=== PATIENT | female | born 1960 | race Caucasian/White ===

== ENCOUNTER 2016-05-27 12:33 | Inpatient (IN) | payer OTHER, MEDICAID ==
--- NOTE | 2016-05-22 15:07 | PCM.ANEPRE ---
Anesthesia Pre-Op Review Reason for Review: elevated BMI Anesthesia Recommendations: Proceed with Procedure Additional Comments 56 yo for total shoulder arthroplasty. Patient's comorbidities include YARA noncompliant on CPAP, BMI 55, IDDM on Lantus. Had GA for ACDF here on 02-27-14. Per anesthetic record patient was EZ mask. Glidescope 3 blade used with Gr I view, 6.5c ETT used (uncertain of reason for tube size). Patient has hx of being a reasonable airway, though this was in 2013. Has echo from 2005 that is unremarkable. Hgb A1c 05/20/16 of 7.6. Would proceed with evaluation of airway DOS and YRAA orders. Chart Reviewed by: Fabio Benz MD May 22, 2016 15:07
[2016-05-27] VITALS (19 sets, daily range): BP systolic 115–159; BP diastolic 8–92; PULSE 70–88; RESP 14–22; O2SAT 94–98
[~2016-05-27] VITALS: Ht 162.6 cm; Wt 157.2 kg
[2016-05-27] MEDS: Lactated Ringer's 1,000 ML IV SCH ×4 (05:00→21:07)
[~2016-05-27 12:33] MED LIST: ALBU8.5H2 INHALATION; CeFAZolin 2 Gm/50 mL D5W IV Premix IV ONE; DICL100G8 TOPICAL; DICL75TA6 PO; FLUO40CA PO; FLUT16SP NS; FURO-128 PO; GABA-502 PO; INSLIS SUBQ; INSU100V7 SUBQ; LEVO100T6 PO; LIP40 PO; NPR500T PO; OMEP40CA36 PO; TRAM50TA2 PO; TRAZ150T72 PO; vitamin d2; wellbutrin
[2016-05-27] MEDS ORDERED: CeFAZolin Inj 3 GM in Dextrose 5% 50 ML IV ONE (13:30)
[2016-05-27] MEDS ORDERED: BUPR75TA10 PO (13:40)
[2016-05-27] MEDS ORDERED: LOM PO (13:40)
[2016-05-27] MEDS ORDERED: SOMA350 PO (13:40)
[2016-05-27] MEDS ORDERED: PREC VAGINAL (13:52)
[2016-05-27] MEDS ORDERED: LOSA25TA21 PO (13:52)
[2016-05-27] MEDS ORDERED: ONDA8TAB10 PO (13:52)
[2016-05-27] MEDS ORDERED: METO50TA3 PO (13:52)
[2016-05-27] MEDS ORDERED: HYDR-3825 PO (13:52)
[2016-05-27] MEDS ORDERED: GABA800T2 PO (13:52)
--- NOTE | 2016-05-27 14:14 | PCM.HPANE ---
Patient Data Surgeon Admitting Provider: Attending Provider:Jay Galindo MD Primary Care Physician:Dwayne Soriano MD Other Provider:Yennifer Negreteingham Anesthesia Reason for Visit Right Shoulder Arthritis RIGHT SHOULDER ARTHRITIS Ht/WT & BMI Height (Feet): 5 Height (Inches): 4 Weight (Kilograms): 157.2 Body Mass Index 59.00 Allergies Coded Allergies: morphine (Verified Allergy, Severe, 02/01/14) vancomycin (Verified Allergy, Intermediate, HIVES, 09/13/15) Sulfa (Sulfonamide Antibiotics) (Verified Allergy, Unknown, BOTTOMS OF FEET AND PALMS OF HANDS BLISTER, 02/01/14) Past Anesthesia History Anesthesia History: Denies:: Abnormal Airway, Anesthesia Reactions, Difficult Intubation, Fam Anesthesia Reaction, Fam Malignant Hypertherm, Malignant Hyperthermia Diabetes History Hx Diabetes?: Yes Type of Diabetes: Type II Glycemic Control: Insulin Dependent Current Bedside Blood Glucose: 105 MRSA MRSA: Yes ([id number] AFTER C-SPINE SX) Medications Hypertension Medication: Yes Home Meds Incl Beta Elvie: Yes Date Beta Elvie Taken: May 27, 2016 Time Beta Elvie Taken: 0500 Reported Medications Hydrocodone-Acetaminophen 7.5-325 mg 1 Each Tablet1 Tab PO prn #90 05/27/16 Ondansetron ODT 8 Mg Tab.rapdis8 Mg PO prn #30 05/27/16 Metoprolol Tartrate 50 Mg Civcsq69 Mg PO DAILY #30 05/27/16 Losartan Potassium 25 Mg Siumyd90 Mg PO DAILY #30 05/27/16 Gabapentin 800 Mg Zpwntf811 Mg PO TID #90 05/27/16 Estrogens Conjugated (Premarin)1 Gm Vagcream0.625 Mg VAGINAL twice week #30 05/27/16 Diphenoxylate/Atropine (Diphenoxylate-Atrop 2.5-0.025)2.5 Mg Tablet2 Tab PO QID #90 05/27/16 Carisoprodol 350 Mg Zyadcq339 Mg PO TID #90 05/27/16 Bupropion 75 Mg Obnxnv94 Mg PO TID #90 05/27/16 Diclofenac Gel (Voltaren Gel)100 Gm TubeUnknown Dose TOPICAL QID #1 TUBE 05/22/16 [vitamin d2] No Conflict Check50,000 Units WEEKLY 05/22/16 Trazodone 150 Mg Sdvsbt487 Mg PO HS PRN Insomnia Ref 0 05/22/16 Albuterol HFA (Proair HFA)8.5 Gm Hfa.aer.ad2 Puffs INHALATION Q4H PRN For Shortness of Breath #1 INHALER 05/22/16 Omeprazole 40 Mg Capsule.dr40 Mg PO BID Ref 0 05/22/16 Naproxen 500 Mg Qri546 Mg PO BID PRN For Pain Ref 0 05/22/16 Levothyroxine 100 Mcg Jttzyi595 Mcg PO DAILY For Thyroid Replacement Ref 0 05/22/16 Furosemide (Lasix)40 Mg Vjxwtn13 Mg PO DAILY PRN edema 30 Days Ref 0 pt states for right arm edema, takes every few days 05/22/16 Insulin Glargine (Lantus U100 Insulin Vial)100 Unit/Ml Vial30 Unit SUBQ BID PRN dosed per sliding scale #1 VIAL Ref 0 05/22/16 Insulin Human Lispro (HumaLOG U100 Insulin Vial)100 Unit/Ml Unit25 Units SUBQ BID PRN sliding scale #1 VIAL Ref 0 Check blood sugars before meals and at bedtime. Use correction factor only before meals. Blood Sugar Lispro Correction: <151, 0 units; 151-175, 1 unit; 176-200, 2 units; 201-225, 3 units; 226-250, 4 units; 251-275, 5 units; 276-300, 6 units; 301-325, 7 units; 326-350, 8 units; 351-375, 9 units; 376-400, 10 units; >400, 12 units. 05/22/16 Fluoxetine 40 Mg Ydbzaqj57 Mg PO DAILY Ref 0 05/22/16 Atorvastatin (Lipitor)40 Mg Tfkqmr91 Mg PO DAILY Ref 0 05/22/16 Discontinued Reported Medications [wellbutrin] No Conflict Check75 Mg DAILY 05/22/16 Tramadol 50 Mg Gyrhny28-571 Mg PO TID PRN For Pain Ref 0 05/22/16 Insulin Glargine (Lantus U100 Insulin Vial)100 Unit/Ml Vial20 Unit SUBQ QAM #1 VIAL Ref 0 05/22/16 Gabapentin 300 Mg Hthdfvn272 Mg PO TID Ref 0 05/22/16 Fluticasone Propionate (Fluticasone Propionate Nasal)16 Gm [place].susp1 [place] NS BID #16 GM Ref 0 05/22/16 Diclofenac ER 75 Mg Vqqqjv54 Mg PO BID 05/22/16 Ergocalciferol (Vitamin D2) (Vitamin D2)2,000 Unit Tablet2,000 Unit PO 05/22/16 Tramadol 50 Mg Ilbhah11 Mg PO Q4H PRN For Pain Ref 0 05/22/16 Fluticasone Propionate (Fluticasone Propionate Nasal)16 Gm [place].susp1 [place] NS BID #16 GM Ref 0 05/22/16 Diclofenac ER 75 Mg Itkuat12 Mg PO BID 05/22/16 Cephalexin 500 Mg Tyiqrls395 Mg PO QID #40 CAPSULE Ref 0 05/22/16 Amoxicillin 500 Mg Fnivecs836 Mg PO TID Ref 0 05/22/16 Bupropion ER (Wellbutrin SR)100 Mg Tablet.er100 Mg PO BID Ref 0 09/13/15 Insulin Lispro (HumaLOG U100 Insulin Pen)100 Unit/1 Ml Insuln.pen18 Unit SUBQ AM #1 PENINJ Ref 0 Blood Sugar Lispro Correction <151 0 units 151-175 1 unit 176-200 2 units 201-225 3 units 226-250 4 units 251-275 5 units 276-300 6 units 301-325 7 units 326-350 8 units 351-375 9 units 376-400 10 units >400 12 units Check blood sugars before meals and at bedtime. Use correction factor only before meals. 02/24/14 Insulin Glargine (Lantus U100 Solostar Insulin Pen)100 Unit/1 Ml Insuln.pen22 Unit SUBQ AM #1 PENINJ Ref 0 02/24/14 Alprazolam 0.5 Mg Tablet0.5 Mg PO TID PRN For Anxiety 30 Days Ref 0 02/24/14 Methocarbamol 750 Mg Boarug015 Mg PO QID PRN For Spasm Ref 0 02/24/14 Atorvastatin Calcium 40 Mg Ndydem48 Mg PO DAILY #30 TABLET Ref 0 02/24/14 Omeprazole (Prilosec)40 Mg Capsule.dr40 Mg PO BID 30 Days Ref 0 02/24/14 Fluoxetine 20 Mg Curyqpq84 Mg PO DAILY 30 Days 02/24/14 Furosemide (Lasix)40 Mg Kjajzo19 Mg PO DAILY 30 Days Ref 0 02/24/14 Gabapentin 300 Mg Qzubgkx556 Mg PO TID 30 Days Ref 0 02/24/14 Losartan Potassium 50 Mg Hifkny329 Mg PO DAILY 02/24/14 Trazodone 150 Mg Rfmoew909 Mg PO HS 30 Days Ref 0 02/24/14 Metoprolol Succinate ER 50 Mg Tab.er.24h50 Mg PO DAILY 30 Days Ref 0 02/24/14 Diphenoxylate/Atropine 2.5-0.025 mg (Lomotil 2.5-0.025 mg)1 Each Tablet2 Each PO 4XDAILY PRN 02/24/14 History History of ENT Problems?: Yes HEENT History: Positive for:: Dysphagia (recent problem with salivary gland - no current problem) Denies:: Abnormal Airway Cataracts Difficult Intubation Glaucoma Hearing Problem Teeth Condition: Missing Teeth Hx of Heart Problems?: Yes Cardiovascular History: Positive for:: Edema (right arm post PICC line) Hypertension Denies:: AICD Atrial Fibrillation Chest Pain Pacemaker Valvular Heart Disease Hx of Respiratory Problem?: Yes Respiratory History: Denies:: Asthma COPD Cough Hemoptysis Oxygen Administration Pneumonia Tuberculosis Use of C-PAP Machine (YARA+ , does not tolerate CPAP) Use of Inhalers / NEBS Hx Neurologic Problems?: Yes Neurological History: Positive for:: Headaches (occasional with seasonal allergies) Denies:: CVA Dementia Multiple Sclerosis Parkinson's Disease Seizures TIA Hx of GI Problems?: Yes Gastrointestinal History: Positive for:: Gastroesphageal Reflux (on prilosec) Heartburn Rectal Bleeding (long ago, related to crohns disease as child) Denies:: Cirrhosis Diverticulitis Hepatitis Hiatal Hernia Hx of Problems?: No Genitourinary History: Denies:: Kidney Stones Urinary Tract Infection (occasional) Other Pertinent History: hx of bladder suspension Female Hx: Denies:: Currently (total hysterectomy 1993) Problems with Breasts? Skin History: Denies:: History Skin Disorders? Pressure Ulcers Hx Musculoskeletal Problems?: Yes Musculoskeletal History: Positive for:: Back Injury (Cervical fusion) Joint Replacement (alba knee, left shoulder) Musculoskeletal Trauma (right shoulder current admission problem) Osteoarthritis Denies:: Degenerative Joint Myasthenia Gravis Systemic Lupus Hx of Psycho/Social Problems?: Yes Psycho Social History: Positive for:: Anxiety Hx Depression Hx Surgeries?: Yes (HYSTERECTOMY, KNEE REPLACEMENTS X2, L SHOULDER, R SHOULDER , C-SPINE) Hx Any Other Health Problems?: Yes Other History: Positive for:: Thyroid Disease (goiters, monitoring) History Blood Transfusions: Positive for:: Accept Blood Products? Denies:: Blood Transfusions Hx Diabetes: YesBedside Blood Glucose: 105 Hx Alcohol Use: NoHx Substance Use: No Smoking Status: Never Smoker Have You Smoked inLast 12 mo: No Stop/Bang Treated for Sleep Apnea?: No Do You Have a CPAP Machine?: No S-Snoring: Do You Snore Loudly: Yes T-Tired: feel tired, fatigued: Yes O-Obsered: Observed not breath: No P-Blood Pressure: treated: Yes B- Body Mass Index > 35 kg/m2: Yes A- Age over 50: Yes N- Neck Large Circumference: Yes G- Gender Male: No YARA Total Score: 6 YARA Risk Assessment: Low Risk, <3 Yes Risk Assessment Category Category 1A: Patient has history of documented sleep apnea, and HAS NOT received any narcotic, sedative or anesthesia administration during this stay. Category 1B: Patient has history of documented sleep apnea, and HAS received any narcotic , sedative or anesthesia administration during this stay Category 2: Patient has SUSPECTED Obstructive Sleep Apnea, and HAS received any narcotic , sedative or anesthesia administration during this stay. Category 3: Patient has SUSPECTED Obstructive Sleep Apnea and HAS NOT received narcotic, sedative or anesthesia administration during this stay. Category 4: Outpatient in Procedural Areas with known sleep apnea or who screen positive for High Risk via the STOP/BANG questionnaire. Exam Exam Vital Signs Vital Signs Date Time Temp Pulse Resp B/P Pulse Ox O2 Delivery O2 Flow Rate FiO2 05/27/16 13:17 37.2 83 18 122/79 97 Room Air General Appearance: Oriented X3 HEENT/AIRWAY: MP 2 Lungs: Normal Air Movement Heart: Regular Rate/Rhythm Meds/Labs/Diagnostics Admission Meds Current Medications Lactated Ringer's (Lr) 1,000 ml @ 120 mls/hr Q8H20M IV Last administered on t 12:54; Start 05/27/16 at 05:00; Stop 05/27/16 at 13:19; Status DC Bedside Blood Glucose: 105 Plan Impression Patient chart reviewed, patient interviewed and anesthestic plan with risks, benefits, and alternatives discussed, and informed consent obtained. NPO Status: 2100 05/26/16 ASA Physical Status: ASA4 Life Threatening Anesthetic Support Modalities: Arterial Line Anesthetic Plan: GA Bene/Risks/Altern/Consents: Yes HP Complete Prior to Induction: Yes Anibal Faye MD May 27, 2016 14:14
[2016-05-27] MEDS ORDERED: Hip/Knee Infiltration Cocktail IM ONE ×7 (14:45)
[2016-05-27] MEDS ORDERED: Bupivacaine Liposome 1.3% 20 mL Inj INFILTRATE ONE (14:45)
[2016-05-27] MEDS ORDERED: Ropivacaine-PF 0.5% 30 mL Inj INFILTRATE ONE (16:13)
[2016-05-27] MEDS ORDERED: Gentamicin 40 mg/mL 2 mL Inj IM ONE (16:35)
[2016-05-27] MEDS ORDERED: BUPIVACAINE IM ONE ×6 (16:45)
[2016-05-27] MEDS ORDERED: [UNRECOGNIZED DRUG - OTHER] IM ONE ×6 (16:45)
[2016-05-27] MEDS ORDERED: MORPHINE IM ONE ×6 (16:45)
[2016-05-27] MEDS ORDERED: BUPIVACAINE IVPUSH PRN ×6 (16:46)
[2016-05-27] MEDS ORDERED: MORPHINE IVPUSH PRN ×6 (16:46)
[2016-05-27] MEDS ORDERED: [UNRECOGNIZED DRUG - OTHER] IVPUSH PRN ×6 (16:46)
[2016-05-27] MEDS ORDERED: MORPHINE IM PRN ×6 (16:47)
[2016-05-27] MEDS ORDERED: BUPIVACAINE IM PRN ×6 (16:47)
[2016-05-27] MEDS ORDERED: [UNRECOGNIZED DRUG - OTHER] IM PRN ×6 (16:47)
[2016-05-27] MEDS ORDERED: Dexamethasone 4 mg/mL Inj IVPUSH PRN (16:55)
[2016-05-27] MEDS ORDERED: EPHEDrine Sulfate 50 mg/mL Inj IVPUSH PRN (16:55)
[2016-05-27] MEDS ORDERED: Phenylephrine 10,000 mCg/mL Inj IVPUSH PRN (16:55)
[2016-05-27] MEDS ORDERED: Ondansetron 2 mg/mL 2 mL Inj IVPUSH PRN (16:55)
[2016-05-27] MEDS ORDERED: MetoCLOpramide 5 mg/mL 2 mL Inj IVPUSH PRN (16:55)
[2016-05-27] MEDS ORDERED: HYDROmorphone 1 mg/mL Inj IVPUSH PRN (16:55)
[2016-05-27] MEDS ORDERED: Lactated Ringer's 500 ML IV PRN (16:55)
[2016-05-27] MEDS ORDERED: Lactated Ringer's 1,000 ML IV SCH (16:55)
--- NOTE | 2016-05-27 16:55 | PCM.HPANE ---
Patient Data Surgeon Admitting Provider: Attending Provider:Jay Galindo MD Primary Care Physician:Dwayne Soriano MD Other Provider:Yennifer Negreteingham Anesthesia Reason for Visit Right Shoulder Arthritis RIGHT SHOULDER ARTHRITIS Ht/WT & BMI Height (Feet): 5 Height (Inches): 4 Weight (Kilograms): 145.60 Body Mass Index 54.00 Allergies Coded Allergies: morphine (Verified Allergy, Severe, 02/01/14) vancomycin (Verified Allergy, Intermediate, HIVES, 09/13/15) Sulfa (Sulfonamide Antibiotics) (Verified Allergy, Unknown, BOTTOMS OF FEET AND PALMS OF HANDS BLISTER, 02/01/14) Past Anesthesia History Anesthesia History: Denies:: Abnormal Airway, Anesthesia Reactions, Difficult Intubation, Fam Anesthesia Reaction, Fam Malignant Hypertherm, Malignant Hyperthermia Diabetes History Hx Diabetes?: Yes (last Hgb A1C 7.6- on 05/20/16) Type of Diabetes: Type II Glycemic Control: Insulin Dependent MRSA MRSA: Yes ([id number] AFTER C-SPINE SX) Medications Hypertension Medication: Yes Home Meds Incl Beta Elvie: No Reported Medications Hydrocodone-Acetaminophen 7.5-325 mg 1 Each Tablet1 Tab PO prn #90 05/27/16 Ondansetron ODT 8 Mg Tab.rapdis8 Mg PO prn #30 05/27/16 Metoprolol Tartrate 50 Mg Ohrswn53 Mg PO DAILY #30 05/27/16 Losartan Potassium 25 Mg Ddgqxd11 Mg PO DAILY #30 05/27/16 Gabapentin 800 Mg Pcqggj753 Mg PO TID #90 05/27/16 Estrogens Conjugated (Premarin)1 Gm Vagcream0.625 Mg VAGINAL twice week #30 05/27/16 Diphenoxylate/Atropine (Diphenoxylate-Atrop 2.5-0.025)2.5 Mg Tablet2 Tab PO QID #90 05/27/16 Carisoprodol 350 Mg Iksunw192 Mg PO TID #90 05/27/16 Bupropion 75 Mg Mazlno32 Mg PO TID #90 05/27/16 Diclofenac Gel (Voltaren Gel)100 Gm TubeUnknown Dose TOPICAL QID #1 TUBE 05/22/16 [vitamin d2] No Conflict Check50,000 Units WEEKLY 05/22/16 Trazodone 150 Mg Nyvuhi647 Mg PO HS PRN Insomnia Ref 0 05/22/16 Albuterol HFA (Proair HFA)8.5 Gm Hfa.aer.ad2 Puffs INHALATION Q4H PRN For Shortness of Breath #1 INHALER 05/22/16 Omeprazole 40 Mg Capsule.dr40 Mg PO BID Ref 0 05/22/16 Naproxen 500 Mg Bhd164 Mg PO BID PRN For Pain Ref 0 05/22/16 Levothyroxine 100 Mcg Adzqtc312 Mcg PO DAILY For Thyroid Replacement Ref 0 05/22/16 Furosemide (Lasix)40 Mg Cajzaa95 Mg PO DAILY PRN edema 30 Days Ref 0 pt states for right arm edema, takes every few days 05/22/16 Insulin Glargine (Lantus U100 Insulin Vial)100 Unit/Ml Vial30 Unit SUBQ BID PRN dosed per sliding scale #1 VIAL Ref 0 05/22/16 Insulin Human Lispro (HumaLOG U100 Insulin Vial)100 Unit/Ml Unit25 Units SUBQ BID PRN sliding scale #1 VIAL Ref 0 Check blood sugars before meals and at bedtime. Use correction factor only before meals. Blood Sugar Lispro Correction: <151, 0 units; 151-175, 1 unit; 176-200, 2 units; 201-225, 3 units; 226-250, 4 units; 251-275, 5 units; 276-300, 6 units; 301-325, 7 units; 326-350, 8 units; 351-375, 9 units; 376-400, 10 units; >400, 12 units. 05/22/16 Fluoxetine 40 Mg Puazfpx58 Mg PO DAILY Ref 0 05/22/16 Atorvastatin (Lipitor)40 Mg Pdxldu01 Mg PO DAILY Ref 0 05/22/16 Discontinued Reported Medications [wellbutrin] No Conflict Check75 Mg DAILY 05/22/16 Tramadol 50 Mg Cjeqwz01-531 Mg PO TID PRN For Pain Ref 0 05/22/16 Insulin Glargine (Lantus U100 Insulin Vial)100 Unit/Ml Vial20 Unit SUBQ QAM #1 VIAL Ref 0 05/22/16 Gabapentin 300 Mg Onqdyzs474 Mg PO TID Ref 0 05/22/16 Fluticasone Propionate (Fluticasone Propionate Nasal)16 Gm [place].susp1 [place] NS BID #16 GM Ref 0 05/22/16 Diclofenac ER 75 Mg Kudvks79 Mg PO BID 05/22/16 Ergocalciferol (Vitamin D2) (Vitamin D2)2,000 Unit Tablet2,000 Unit PO 05/22/16 Tramadol 50 Mg Jnhjcq24 Mg PO Q4H PRN For Pain Ref 0 05/22/16 Fluticasone Propionate (Fluticasone Propionate Nasal)16 Gm [place].susp1 [place] NS BID #16 GM Ref 0 05/22/16 Diclofenac ER 75 Mg Asuwcg98 Mg PO BID 05/22/16 Cephalexin 500 Mg Oxekqgu386 Mg PO QID #40 CAPSULE Ref 0 05/22/16 Amoxicillin 500 Mg Evfowez404 Mg PO TID Ref 0 05/22/16 Bupropion ER (Wellbutrin SR)100 Mg Tablet.er100 Mg PO BID Ref 0 09/13/15 Insulin Lispro (HumaLOG U100 Insulin Pen)100 Unit/1 Ml Insuln.pen18 Unit SUBQ AM #1 PENINJ Ref 0 Blood Sugar Lispro Correction <151 0 units 151-175 1 unit 176-200 2 units 201-225 3 units 226-250 4 units 251-275 5 units 276-300 6 units 301-325 7 units 326-350 8 units 351-375 9 units 376-400 10 units >400 12 units Check blood sugars before meals and at bedtime. Use correction factor only before meals. 02/24/14 Insulin Glargine (Lantus U100 Solostar Insulin Pen)100 Unit/1 Ml Insuln.pen22 Unit SUBQ AM #1 PENINJ Ref 0 02/24/14 Alprazolam 0.5 Mg Tablet0.5 Mg PO TID PRN For Anxiety 30 Days Ref 0 02/24/14 Methocarbamol 750 Mg Wbcvcl297 Mg PO QID PRN For Spasm Ref 0 02/24/14 Atorvastatin Calcium 40 Mg Pwbcmg71 Mg PO DAILY #30 TABLET Ref 0 02/24/14 Omeprazole (Prilosec)40 Mg Capsule.dr40 Mg PO BID 30 Days Ref 0 02/24/14 Fluoxetine 20 Mg Hajbkow49 Mg PO DAILY 30 Days 02/24/14 Furosemide (Lasix)40 Mg Hcxsfb52 Mg PO DAILY 30 Days Ref 0 02/24/14 Gabapentin 300 Mg Wpazrio012 Mg PO TID 30 Days Ref 0 02/24/14 Losartan Potassium 50 Mg Yjhcgt556 Mg PO DAILY 02/24/14 Trazodone 150 Mg Srsmek919 Mg PO HS 30 Days Ref 0 10/11/14 Metoprolol Succinate ER 50 Mg Tab.er.24h50 Mg PO DAILY 30 Days Ref 0 02/24/14 Diphenoxylate/Atropine 2.5-0.025 mg (Lomotil 2.5-0.025 mg)1 Each Tablet2 Each PO 4XDAILY PRN 02/24/14 History History of ENT Problems?: Yes HEENT History: Positive for:: Dysphagia (recent problem with salivary gland - no current problem) Denies:: Abnormal Airway Cataracts Difficult Intubation Glaucoma Hearing Problem Teeth Condition: Missing Teeth Hx of Heart Problems?: Yes Cardiovascular History: Positive for:: Edema (right arm post PICC line) Hypertension Denies:: AICD Atrial Fibrillation Chest Pain Pacemaker Valvular Heart Disease Hx of Respiratory Problem?: Yes Respiratory History: Denies:: Asthma COPD Cough Hemoptysis Oxygen Administration Pneumonia Tuberculosis Use of C-PAP Machine (YARA+ , does not tolerate CPAP) Use of Inhalers / NEBS Hx Neurologic Problems?: Yes Neurological History: Positive for:: Headaches (occasional with seasonal allergies) Denies:: CVA Dementia Multiple Sclerosis Parkinson's Disease Seizures TIA Hx of GI Problems?: Yes Gastrointestinal History: Positive for:: Gastroesphageal Reflux (on prilosec) Heartburn Rectal Bleeding (long ago, related to crohns disease as child) Denies:: Cirrhosis Diverticulitis Hepatitis Hiatal Hernia Hx of Problems?: No Genitourinary History: Denies:: Kidney Stones Urinary Tract Infection (occasional) Other Pertinent History: hx of bladder suspension Female Hx: Denies:: Currently (HYSTERECTOMY) Problems with Breasts? Skin History: Denies:: History Skin Disorders? Pressure Ulcers Hx Musculoskeletal Problems?: Yes Musculoskeletal History: Positive for:: Back Injury (Cervical fusion) Joint Replacement (alba knee, left shoulder) Musculoskeletal Trauma (right shoulder current admission problem) Osteoarthritis Denies:: Degenerative Joint Myasthenia Gravis Systemic Lupus Hx of Psycho/Social Problems?: Yes Psycho Social History: Positive for:: Anxiety Hx Depression Hx Surgeries?: Yes (HYSTERECTOMY, KNEE REPLACEMENTS X2, L SHOULDER, R SHOULDER , C-SPINE) Hx Any Other Health Problems?: Yes Other History: Positive for:: Thyroid Disease (goiters, monitoring) History Blood Transfusions: Positive for:: Accept Blood Products? Denies:: Blood Transfusions Hx Diabetes: Yes (last Hgb A1C 7.6- on 05/20/16) Hx Alcohol Use: NoHx Substance Use: No Smoking Status: Never Smoker Have You Smoked inLast 12 mo: No Stop/Bang S-Snoring: Do You Snore Loudly: Yes T-Tired: feel tired, fatigued: Yes O-Obsered: Observed not breath: No P-Blood Pressure: treated: Yes B- Body Mass Index > 35 kg/m2: Yes A- Age over 50: Yes N- Neck Large Circumference: Yes G- Gender Male: No YARA Total Score: 6 Risk Assessment Category Category 1A: Patient has history of documented sleep apnea, and HAS NOT received any narcotic, sedative or anesthesia administration during this stay. Category 1B: Patient has history of documented sleep apnea, and HAS received any narcotic , sedative or anesthesia administration during this stay Category 2: Patient has SUSPECTED Obstructive Sleep Apnea, and HAS received any narcotic , sedative or anesthesia administration during this stay. Category 3: Patient has SUSPECTED Obstructive Sleep Apnea and HAS NOT received narcotic, sedative or anesthesia administration during this stay. Category 4: Outpatient in Procedural Areas with known sleep apnea or who screen positive for High Risk via the STOP/BANG questionnaire. Exam Exam General Appearance: Alert, Oriented X3, Cooperative, No Acute Distress HEENT/AIRWAY: MP 2, Neck Movement (FROM, large neck circumference) Lungs: Normal Air Movement Heart: Regular Rate/Rhythm Meds/Labs/Diagnostics Admission Meds Current Medications Lactated Ringer's (Lr) 1,000 ml @ 120 mls/hr Q8H20M IV Last administered on t 12:54; Start 05/27/16 at 05:00; Stop 05/27/16 at 13:19 Plan Impression Patient chart reviewed, patient interviewed and anesthestic plan with risks, benefits, and alternatives discussed, and informed consent obtained. NPO Status: > 8 hrs ASA Physical Status: ASA3 Severe Disease (BMI 59) Anesthetic Plan: GA, Regional Block (Right shoulder block for postoperative pain control. Risks of bleeding, infection, nerve damage, pneumothorax discussed) Bene/Risks/Altern/Consents: Yes HP Complete Prior to Induction: Yes Navid Fay MD May 27, 2016 13:15
[2016-05-27] MEDS ORDERED: BUPIVACAINE 0.25% ARTICULAR SCH ×5 (17:14)
[2016-05-27] MEDS ORDERED: EPINEPHRINE ARTICULAR SCH ×5 (17:14)
[2016-05-27] MEDS ORDERED: [UNRECOGNIZED DRUG - OTHER] ARTICULAR SCH ×5 (17:14)
[2016-05-27] MEDS ORDERED: KETOROLAC ARTICULAR SCH ×5 (17:14)
[2016-05-27] MEDS ORDERED: Bacitracin 50,000 unit Inj IRRIGATION ONE (17:44)
[2016-05-27] MEDS ORDERED: Polyethylene Glycol (PEG) 17 Gm Powder PO PRN (18:00)
[2016-05-27] MEDS ORDERED: Magnesium Hydroxide 10 mL Oral Concentration PO PRN (18:00)
--- NOTE | 2016-05-27 18:14 | PCM.ORTHOP ---
Orthopedic Operative Report Date of Service: May 27, 2016 Pre Operative Diagnosis Right shoulder glenohumeral arthritis with rotator cuff tear, large symptomatic subcutaneous lipomas Post Operative Diagnosis Same Procedure Right shoulder reverse total shoulder arthroplasty, 2 cm diameter lipoma subcutaneous excisionsX 8 Surgeon Surgeon: Jay Galindo MD Assistants: Josh Momin, Dominique Johnson Indication for Procedure Right shoulder arthritis, rotator cuff tear, symptomatic lipoma Findings Right shoulder severe degenerative joint disease, multiple loose bodies, large 2 cm diameter lipomatous subcutaneous, massive rotator cuff tear Details of Procedure Implant:Ar[employer] Reverse fracture system: Size 7 CaP coated humeral stem , small glenoid baseplate, small, 36+6 humeral insert, size 36 mm head glenosphere, central non-locking screw size 6.5 x 30 mm, peripheral locking screw 36 mm, peripheral locking screw 36 mm Patient Status: Patient was extubated and taken to recovery room in stable condition. Indications: Tracie Wong is a 56-year-old right hand dominant s/p shoulder pain with pseudoparalysis and glenohumeral arthritis. The patient was offered conservative treatments versus surgical intervention given the severity of the injury and the patient opted for surgery. A clear explanation was given to the patient regarding the condition present, and the available conservative and surgical options. It was emphasized that the risks and benefits of surgery include but are not limited to infection, wound healing problems, damage to adjacent structures such as nerves, blood vessels and tendons, intermediate teacher disability and pain, arthritis, hypersensitivity, deep vein thrombosis, pulmonary embolism, broken hardware, failure of surgery, need for further procedures at time of surgery or later, cast related problems, loss of limb or life. The patient was given an explanation and the patient voiced understanding of what to expect after the procedure or surgery, the limitations in activities of daily living, the likely duration for post operative recovery and the instructions that are to be followed. At the end the patient was invited to seek clarification or ask further questions but there were none. The patient voiced understanding of the entire consultation. Description of Procedure: Patient was taken to operating room and transferred to operating table in supine position. Time out was performed with both anesthesia and orthopaedics faculty present to confirm details of case to be performed. After time out performed, patient placed under general anesthesia and endotracheal tube secured into place. Once endotracheal tube secured, the patient was placed into the modified beach-chair position at about 40 degrees of flexion. Patient position was again checked to ensure all bony prominences adequately padded. The right arm was prepped and draped in the usual sterile fashion to the level of the neck. A standard deltopectoral incision was made beginning immediately above the coracoid process and extending distally and laterally. The deltoid muscle was split through the interval being carefully not to release any deltoid along the clavicle or humerus. The proximal one-third of the pectoralis major muscle was incised off the humerus for better exposure. The supraspinatus and infraspinatus muscles were intact and still attached to the fractured greater tuberosity. The subscapularis was intact and also still attached to the fractured lesser tiberosity. It was incised through the tendinous portion just medial to the lesser tuberosity and tagged with 2-0 Fiberwire. Several 2 cm diameter lipomas were removed subcutaneously and sent to pathology along the incision site. The arm was externally rotated to expose the humeral head while the anterior humeral circumflex vessels ("3 sisters") were identified, ligated and then cut protecting the axillary nerve throughout inferior and medial to the vessels. The long head of the biceps was identified along the bicipital groove, incised at its origin and tagged for later tenodesis to the pectoralis major A airplane pilot supervisor hole was then made with a 4 mm drill through the humeral head along the axis of the humeral shaft just lateral to the head's articular surface and just posterior to the bicipital groove. The 6 mm trochar pointed reamer was then inserted with continued circumferential reaming in 1 mm increments until light cortical contact was achieved with the 7 mm reamer. The intramedullary resection guide was assembled and the version control paula was placed to allow for 30 degrees retroversion. The neck cut was verified with a bat wing. Two threaded Steinmann pins were placed in the resection guide to secure the block to bone and the reamer and guide boom were removed prior to resecting the humeral head with the oscillating saw. We started broaching with the 8 mm broach and ended with the 7 mm broach which solidly fit in the canal and fully seated on the humerus. The broach cover was then used to protect the humerus while attention was turned to the glenoid. Any remaining labrum was removed from the glenoid along with surrounding osteophytes. The glenoid sizer was centered on the glenoid and a 3.2 mm Steinmann pin was inserted with a 10 degree inferior tilt with solid bone purchase. The glenoid was then reamed with the cannulated base plate reamer over the top of the Steinmann pin until a small bone shelf was evident circumferentially. The cannulated trial glenoid baseplate was placed and fully seated. The glenoid baseplate implant was impacted and fully seated. The 6.5 mm central screw was then inserted following removal of the Steinmann with good compression. The four surrounding peripheral screws were then drilled with a 2.7 mm drill through the threaded locking guides and then placed. The glenosphere trial was placed and tested with a good fit. The 36 mm glenosphere implant was then tamped in place with appropriate offset. The standard humeral tray/bearing were placed and a trial reduction was performed. The patient achieved 80 degrees of external/internal rotation, 110 degrees of abduction, 45 degrees extension and 120 degrees of forward flexion with complete stability. The trail components were removed and the wound was copiously irrigated with 3 liters of normal saline. The stem was inserted followed by impaction of the humeral tray/bearing. The implant was reduced and once again range of motion was found to be 80 degrees of external/internal rotation, 110 degrees of abduction, 45 degrees extension and 120 degrees of forward flexion with complete stability. The wound was again irrigated. The subscapularis was repaired with drill holes in the humerus prior to implantation of the stem with #2 Fiberwire through previously made bone tunnels. The long head of biceps was tenodesed to the pectoralis major. The deltoid interval was closed with 0 vicryl followed by 2-0 vicryl subcutaneous closure and then monocryl stitches for the skin. A drain was placed as well as gentamicin, and transexamic acid and a local anesthetic cocktail into the skin. Sterile dressings were applied along with a shoulder immobilizer and abduction pillow. The patient was then awoken from anesthesia and extubated, his neurovascular status was intact when checked in PACU. Pt tolerated procedure well and there was no complications. Grafts, Implants: Implants-See Implant Record Complications There were no periprocedural complications identified. Condition Stable Anesthetic Administered: GA Catheters: None Output, Estimated Blood Loss: 150 Blood Admin during surgery: No Surgical Cast or Splint: Shoulder Immobilizer Surgical Specimen Removed: Yes Specimen sent to Pathology: Yes copies to: Jay Galindo MD, Christopher L MD May 27, 2016 18:14
[2016-05-27] MEDS ORDERED: Insulin Human REGular-Omnicell 100 Unit/mL ONE (18:42)
--- NOTE | 2016-05-27 18:53 | PCM.ANEP2 ---
Post Anesthesia Evaluation ASA/CMS Post Anesthesia VS in Patient's Normal Range?: Yes Resp Stable; Airway Patent?: Yes CV Function & Hydration Stable: Yes Mental Status Recovered?: Yes Pain control Satisfactory?: Yes N/V Control Satisfactory?: Yes Anibal Faye MD May 27, 2016 18:53
--- NOTE | 2016-05-27 18:53 | PCM.ANEP1 ---
Post Anesthesia Phase 1 PACU Phase 1 Assessment Date of Service: May 27, 2016 Vital Signs Vital Signs Date Time Temp Pulse Resp B/P Pulse Ox O2 Delivery O2 Flow Rate FiO2 05/27/16 13:17 37.2 83 18 122/79 97 Room Air Anesthetic Administered: GA Level of Alertness: Awake, talking Pain: No Nausea or Vomiting: No Lungs: Normal Air Movement Anibal Faye MD May 27, 2016 18:53
[2016-05-27] MEDS: fentaNYL-PF 50 mCg/mL 2 mL Inj IVPUSH PRN ×4 (18:54→20:00)
--- NOTE | 2016-05-27 19:56 | DRSVH ---
PROCEDURE: X-RAY RIGHT SHOULDER, MINIMUM TWO VIEWS ([id number]) INDICATIONS: status post right reverse total shoulder arthroplasty TECHNIQUE: 2 views of the shoulder were acquired. COMPARISON: [facility], CR, XR RAD SHOULDER INJ MRI/CT ARTH, 04/23/2016, 15:01. [facility], CR, XR SHOULDER 4 VW RT, 04/02/2016, 14:22. FINDINGS: Bones: There are postsurgical changes status post right total shoulder arthroplasty. Surgical hardwa re demonstrates expected alignment. No periprosthetic fractures. Visualized ribs appear intact. Soft tissues: No suspicious soft tissue calcifications. IMPRESSION: 1. Expected postsurgical changes status post right shoulder arthroplasty. Dictated by: Syed Connolly M.D. on 05/27/2016 at 19:54 Approved by: Syed Connolly M.D. on 05/27/2016 at 19:54
[2016-05-27] MEDS ORDERED: HYDROmorphone 2 mg/mL Inj ONE (20:26)
[2016-05-27] MEDS ORDERED: Propofol 10,000 mCg/mL 20 mL Inj ONE (20:26)
[2016-05-27] MEDS ORDERED: Ketamine 10 mg/mL 20 mL Inj ONE (20:26)
[2016-05-27] MEDS ORDERED: Glycopyrrolate 0.2 mg/mL 5 mL Inj ONE (20:26)
[2016-05-27] MEDS ORDERED: fentaNYL-PF 50 mCg/mL 2 mL Inj ONE (20:26)
[2016-05-27] MEDS ORDERED: Rocuronium 10 mg/mL 5 mL Inj ONE (20:26)
[2016-05-27] MEDS ORDERED: Ondansetron 2 mg/mL 2 mL Inj ONE (20:26)
[2016-05-27] MEDS ORDERED: MetoCLOpramide 5 mg/mL 2 mL Inj ONE (20:26)
[2016-05-27] MEDS ORDERED: Neostigmine 1 mg/mL 5 mL Inj ONE (20:26)
[2016-05-27] MEDS ORDERED: Insulin Human REGular 300 Unit/3 mL Inj SUBQ ONE (21:05)
[2016-05-27] MEDS: Senna-Docusate 8.6-50 mg Tablet PO SCH (21:19)
[2016-05-27] MEDS: HYDROmorphone 0.5 mg/0.5 mL iSecure Syringe IVPUSH PRN (22:05)
[2016-05-28] MEDS: HYDROcodone-APAP 5-325 mg Tablet PO PRN ×2 (00:20→08:39)
[2016-05-28] MEDS: CeFAZolin Inj 3 GM in Dextrose 5% 50 ML IV SCH ×2 (00:20→08:41)
[2016-05-28] MEDS: LORazepam 0.5 mg Tablet PO PRN ×2 (00:20→04:18)
--- NOTE | 2016-05-28 00:25 | NUR ---
Post Op Patient arrived to room 1006 around 2014 via hailey-bed. A&Ox3, answering questions appropriately. Arrived on 2L NC, CPOx placed for high YARA risk, at 96%. Tolerating ice chips. AAT to general diet. IV patent and infusing appropriately. Von hose on both legs. Asked for SCD sleeves to be removed as they were too hot for her legs. Blood sugar- 176. BETTE drain to right shoulder, putting out sanguineous output. Oriented to room and call light.
[2016-05-28 01:13] VITALS: BP 151/94; PULSE 87; RESP 17; O2SAT 91
[2016-05-28] MEDS: hydrOXYzine Pamoate 25 mg Capsule PO PRN ×2 (02:58→10:09)
[2016-05-28 05:30] VITALS: BP 138/80; PULSE 81; RESP 17; O2SAT 95
[2016-05-28] MEDS: HYDROmorphone 0.5 mg/0.5 mL iSecure Syringe IVPUSH PRN ×2 (06:02→14:37)
[2016-05-28] MEDS: Senna-Docusate 8.6-50 mg Tablet PO SCH ×2 (08:30→11:07)
[2016-05-28] MEDS: Lactated Ringer's 1,000 ML IV SCH (08:47)
[2016-05-28 08:48] LABS: BASOPHILS % (AUTO) 0.3 % (0-3); EOSINOPHILS % (AUTO) 0.7 % (0-5); MONOCYTES % (AUTO) 10.7 % (4-12); Mean Corpuscular Hemoglobin 27.3 pg (27.0-35.0); Mean Corpuscular Volume 85.9 fL (81-100); Platelet Count 376 bil/L (150-400)
[2016-05-28] MEDS ORDERED: Insulin GLARgine 100 Unit/mL Syringe SUBQ SCH (10:11)
[2016-05-28] MEDS ORDERED: Pantoprazole 40 mg ER24 Tablet PO SCH (10:13)
[2016-05-28] MEDS ORDERED: Insulin LISPRO 300 Unit/3 mL Inj SUBQ PRN (10:15)
[2016-05-28] MEDS ORDERED: Ondansetron 8 mg ODT Tablet PO PRN (10:15)
--- NOTE | 2016-05-28 10:59 | NUR ---
Evaluation completed. Please go to "Notes" then click on "Assessments and Notes" (bottom left corner of screen). Then select appropriate discipline tab on top of screen.
[2016-05-28] MEDS ORDERED: DiphenOXYlate-Atropine 2.5 mg-0.025 mg Tablet PO SCH (11:30)
[2016-05-28] MEDS ORDERED: DOCU-41 PO (11:40)
[2016-05-28] MEDS ORDERED: HYDR-4003 PO (11:40)
--- NOTE | 2016-05-28 12:45 | NUR ---
Social Work Discharge/Brief Note: SW acknowledged order for discharge. SW met with patient at bedside to discuss discharge plan. Patient is a 56 year old female admitted on 05/27/16 for right shoulder arthritis. Patient states payer as [employer]. Patient states residing in [facility] with mother Vignesh.[phone]. Patient states pharmacy of choice as [facility]. Patient has no previous HHC or SNF history. Patient has a walker and cane at home for use. Patient has AD at home and was encouraged to bring in from home. SW discussed therapy recommendations for C. Patient states being in agreement. Patient states choice as [facility]. Choice list offered and declined. CHERIE contacted [facility] rep Joseph, who was made aware and states that payer accepted. CHERIE provided access to [facility]. Face to face signed by DEANNE and awaiting MD to sign. Joseph aware of discharge for today and services to be initiated 24-48hrs following discharge. CHERIE to follow. PLAN: Home with HHC via [facility]. Transport via POV. CHERIE to follow. Simran TORRES Addendum: 05/28/16 at 1426 by OLGA BAINS Face to face signed by MD. Ruiz aware and obtained face to face. No other needs Simran TORRES
--- NOTE | 2016-05-28 12:50 | PCM.PNORTH ---
Subjective Date of Service: May 28, 2016 Visit Information: Reason for Visit Right Shoulder Arthritis Surgery/Surgery Date R TOTAL SHOULDER 05/27/16 Post-Op Day # 1 Date of Admission: May 27, 2016 at 20:25 Hospital Day # Subjective Patient many concerns this morning. Patient states that she does not feel as if her or we will provide her adequate help at home. She states she is feeling very anxious about going home. She requested that I speak to her mother to give her permission to get a bigger bad and to provide additional help her in the house. I explained that I can talk to her mother when she comes to pick her up if that was still necessary. Patient is asking to be kept another night as she does not want to go home. Patient is also requesting a change in her pain medication for stronger narcotics for when she goes home as she has been on chronic narcotics for "many years." Patient became tearful multiple times during our discussion. By the end of the discussion, patient was agreeable to the decision of going home today and keeping her on her prescribed pain medications with the addition of Vistaril. Postop General: No Shortness of Breath, No Chest Pain Pain Management: PO Objective Exam Objective Patient laying in bed. Sling is in place. Vital Signs and I/O Vital Sign - Last Date Time Temp Pulse Resp B/P Pulse Ox O2 Delivery O2 Flow Rate FiO2 05/28/16 05:30 36.6 81 17 138/80 95 Nasal Cannula 2.00 Intake and Output 05/27/16 05/27/16 05/28/16 Cumulative From/Thru 15:00 23:00 07:00 05/22/16 13:35 - 05/28/16 06:04 Intake Total 1219 ml 1815 ml 3034 ml Output Total 330 ml 580 ml 910 ml Balance 889 ml 1235 ml 2124 ml Intake Oral 1090 ml 1090 ml IV Total 1219 ml 725 ml 1944 ml Output Urine Total 450 ml 450 ml Drainage Total 30 ml 130 ml 160 ml Estimated Blood Loss 300 ml 300 ml # Voids 1 1 # Bowel Movements 0 0 Lab & Micro Results Laboratory Tests Test 05/28/16 08:35 White Blood Count 12.8th/mm3 (3.8-10.1) Red Blood Count 4.54mil/mm3 (3.90-5.20) Hemoglobin 12.4g/dL (12.0-15.6) Hematocrit 39.0% (35.0-46.0) Mean Corpuscular Volume 85.9fL (81-100) Mean Corpuscular Hemoglobin 27.3pg (27.0-35.0) Mean Corpuscular Hemoglobin Concent 31.8% (32.0-37.0) Red Cell Distribution Width 15.9% (12.3-15.4) Platelet Count 376bil/L (150-400) Neutrophils (%) (Auto) 65.0% (40-74) Lymphocytes (%) (Auto) 22.1% (14-46) Monocytes (%) (Auto) 10.7% (4-12) Eosinophils (%) (Auto) 0.7% (0-5) Basophils (%) (Auto) 0.3% (0-3) Result Diagram: 05/28/16 0835 General Appearance: Alert, Oriented X3, Cooperative, Mild Distress Extremities: Distal Pulses Palpable, Warm, No Compartment Syndrom Noted, Tenderness/Swelling Noted (right shoulder) Postop Sensory Motor: Distal Motor Intact, Movement in Fingers, Distal Sensation Intact, NVI Distally SURGICAL WOUND : Wound Location/Description Perioperative dressings clean dry and intact. BETTE drain removed. Drain Location Body Site: Shoulder Incision General Appearance: No Direct Observation Activity: Activity per PT (ROM to elbow and wrist, no ROM to shoulder) Catheters: None Assessment & Plan Impression Postop day 1 right reverse total shoulder arthroplasty with lipoma excision Problems: Plan Weightbearing: Patient is nonweightbearing with the right upper extremity. Patient will remain in sling at all times except when doing range of motion to the elbow. Physical therapy for transfers, progressive ambulation, strengthening Wound care: Perioperative dressing will remain in place for 2 weeks unless saturated. Please provide patient with extra dressings to take home in case dressings become soiled. Shower instructions: Keep the dressings intact and dry. Do not get them wet. Cover with a bag or saran wrap. Analgesia: Patient was given a prescription for [place] 5/325mg and Vistaril 25mg. Discharge plan: Discharge home today. Dominique Johnson PA-C May 28, 2016 11:32
[2016-05-28] MEDS ORDERED: HYDR25CA PO (12:51)
--- NOTE | 2016-05-28 12:52 | PCM.DIORTH ---
Ortho Discharge Instruction Date of Service: May 28, 2016 Dates of Hospitalization Date of Hospital Admission May 27, 2016 at 20:25 Providers Admitting Physician: Jay Galindo MD Primary Care Physician: Dwayne Soriano MD Attending Physician: Jay Galindo MD Diet Discharge Diet: No restrictions Activity Discharge Activity-General: Try not to overdue, Be up and about, Ice incision 3 -5 time/day for 20min Right Lower Extremity: Non-weight Bearing Dressing and Incisional Care Discharge Dressing Care: Keep dressing clean, dry & intact (x2 weeks) Discharge Hygiene: DO NOT soak incision under water Additional Instructions Discharge Instructions Weightbearing: Patient is nonweightbearing with the right upper extremity. Patient will remain in sling at all times except when doing range of motion to the elbow. No movement to the shoulder. No lifting, pushing, pulling or grasping anything with the left arm/hand. Physical therapy for transfers, progressive ambulation, strengthening Wound care: Perioperative dressing will remain in place for 2 weeks unless saturated. Please provide patient with extra dressings to take home in case dressings become soiled. Shower instructions: Keep the dressings intact and dry. Do not get them wet. Cover with a bag or saran wrap. Analgesia: Patient was given a prescription for [place] 5/325mg and Vistaril 25mg. Discharge plan: Discharge home today. Dominique Johnson PA-C May 28, 2016 11:39
--- NOTE | 2016-05-28 12:56 | PCM.DC.ORT ---
Discharge Summary Date of Service: May 28, 2016 Date of Hospital Admission: May 27, 2016 at 20:25 Date of Surgery: May 27, 2016 Date of Discharge: May 28, 2016 Reason for Hospitalization: Right shoulder arthritis Procedures Performed: Right reverse total shoulder arthroplasty Hospital Course: The patient was admitted to the hospital on 05/27/2016 and underwent the above procedure. Antibiotic prophylaxis consisting of Ancef. The surgeon was Dr. Galindo. Patient tolerated the procedure well and was transferred to recovery room in stable condition. Drain was discontinued on postop day 1. Patient had physical therapy to work on ambulation and transfers. Nonweightbearing with the RUE, in a sling at all times. Pain was managed with [place], Percocet, Vistaril, Toradol. DVT prophylaxis: SCDs. Hospital course was uncomplicated. Patient was able to perform adequately enough to be discharged home on postop day 1. Follow-up: at [facility] 2 weeks postop for wound check and at [address] Galindo with x-ray. Diagnosis at Time of Discharge Status post right reverse total shoulder arthroplasty Problems: Disposition: Stable discharge to home Discharge Instructions: Weightbearing: Patient is nonweightbearing with the right upper extremity. Patient will remain in sling at all times except when doing range of motion to the elbow. Physical therapy for transfers, progressive ambulation, strengthening Wound care: Perioperative dressing will remain in place for 2 weeks unless saturated. Please provide patient with extra dressings to take home in case dressings become soiled. Shower instructions: Keep the dressings intact and dry. Do not get them wet. Cover with a bag or saran wrap. Analgesia: Patient was given a prescription for [place] 5/325mg and Vistaril 25mg. Discharge plan: Discharge home today. ([vitamin d2]) 50,000 UNITS WEEKLY Albuterol HFA (Proair HFA) 8.5 Gm Hfa.aer.ad 2 PUFFS INHALATION Q4H PRN PRN For Shortness of Breath Atorvastatin (Lipitor) 40 Mg Tablet 40 MG PO DAILY Bupropion (Bupropion) 75 Mg Tablet 75 MG PO TID Carisoprodol (Carisoprodol) 350 Mg Tablet 350 MG PO TID Diclofenac Gel (Voltaren Gel) 100 Gm Tube Unknown Dose TOPICAL QID Diphenoxylate/Atropine (Diphenoxylate-Atrop 2.5-0.025) 2.5 Mg Tablet 2 TAB PO QID Docusate Sodium (Colace) 100 Mg Capsule 100 MG PO BID PRN PRN For Constipation Estrogens Conjugated (Premarin) 1 Gm Vagcream 0.625 MG VAGINAL twice week Fluoxetine (Fluoxetine) 40 Mg Capsule 80 MG PO DAILY Furosemide (Lasix) 40 Mg Tablet 40 MG PO DAILY PRN PRN edema pt states for right arm edema, takes every few days Gabapentin (Gabapentin) 800 Mg Tablet 800 MG PO TID Hydrocodone-Acetaminophen 5-325 mg (Hydrocodone-Acetaminophen 5-325 mg) 1 Each Tablet 1 TABLET PO Q6H PRN PRN For Mild Pain Hydroxyzine Pamoate (Vistaril) 25 Mg Capsule 25 MG PO Q6H PRN PRN discomfort Insulin Glargine (Lantus U100 Insulin Vial) 100 Unit/Ml Vial 30 UNIT SUBQ BID PRN PRN dosed per sliding scale Insulin Human Lispro (HumaLOG U100 Insulin Vial) 100 Unit/Ml Unit 25 UNITS SUBQ BID PRN PRN sliding scale Check blood sugars before meals and at bedtime. Use correction factor only before meals. Blood Sugar Lispro Correction: <151, 0 units; 151-175, 1 unit; 176-200, 2 units; 201-225, 3 units; 226-250, 4 units; 251-275, 5 units; 276-300 , 6 units; 301-325, 7 units; 326-350, 8 units; 351-375, 9 units; 376-400, 10 units; >400, 12 units. Levothyroxine (Levothyroxine) 100 Mcg Tablet 100 MCG PO DAILY Losartan Potassium (Losartan Potassium) 25 Mg Tablet 25 MG PO DAILY Metoprolol Tartrate (Metoprolol Tartrate) 50 Mg Tablet 50 MG PO DAILY Omeprazole (Omeprazole) 40 Mg Capsule.dr 40 MG PO BID Ondansetron ODT (Ondansetron ODT) 8 Mg Tab.rapdis 8 MG PO prn Trazodone (Trazodone) 150 Mg Tablet 150 MG PO HS PRN PRN Insomnia Dominique Johnson PA-C May 28, 2016 12:56
--- NOTE | 2016-05-28 15:21 | NUR ---
Discharge Pt left with family in stable condition with all belongings at 1515, IV d/c'd, prescriptions given, teaching done on precautions.
--- NOTE | 2016-06-01 12:01 | PATH ---
SURGICAL PATHOLOGY Attending Physician:See Additional MD CASE STATUS: Signed Out PATIENT NAME: LISSETT ADAIR PID: [id number] : 1960 DATE COLLECTED:05/27/2016 00:00 SPECIMEN: Soft Tissue, Lipoma CLINICAL HISTORY: A: RIGHT SHOULDER MASS FINAL DIAGNOSIS: 1.RIGHT SHOULDER MASS: LIPOMA, NEGATIVE FOR ATYPIA. ICD10 CODE D17.21 GROSS DESCRIPTION: The specimen is received in formalin, labeled with the patient's name, sublabeled as right shoulder mass and consists of multiple fragments of kowalski-yellow lobular membranous adipose tissue (9.5 x 7.5 x 1.5 cm in aggregate). The cut surface is homogenous and unremarkable. Ink code: black-exterior. Section code: (A, B) adipose tissue, lifeline representatives. 05/29/16 JM MICRO DESCRIPTION: See diagnosis. ICD-9 CODES: CPT CODES: 1: 42069 Electronically Signed Out Hernandez Salcido MD [facility] [address], [place] [address] Technical component performed at [facility], [facility] [address], [place], [address]
== END 2016-05-28 15:14 | disposition home health service (06) | DRG 315 ==
LOC: SAS 12:33 → OSC 20:25
PROVIDERS: ADMIT Orthopaedic Surgery; ATTEND Orthopaedic Surgery
PROC: 0JBD0ZX Excision of Right Upper Arm Subcutaneous Tissue and Fascia, Open Approach, Diagnostic (ICD-10-PCS; 2016-05-27)
PROC: 0RRJ00Z Replacement of Right Shoulder Joint with Reverse Ball and Socket Synthetic Substitute, Open Approach (ICD-10-PCS; principal; 2016-05-27 14:30)
DX: M75.101 Unspecified rotator cuff tear or rupture of right shoulder, not specified as traumatic (principal); Z68.43 Body mass index [BMI] 50.0-59.9, adult; I10 Essential (primary) hypertension; E66.01 Morbid (severe) obesity due to excess calories; M19.011 Primary osteoarthritis, right shoulder; K21.9 Gastro-esophageal reflux disease without esophagitis; D17.39 Benign lipomatous neoplasm of skin and subcutaneous tissue of other sites; G47.33 Obstructive sleep apnea (adult) (pediatric); Z91.19 Patient's noncompliance with other medical treatment and regimen; F41.9 Anxiety disorder, unspecified; Z79.4 Long term (current) use of insulin; E11.9 Type 2 diabetes mellitus without complications